=== PATIENT | female | born 1980 | race Caucasian/White ===

== ENCOUNTER → 2018-05-05 16:30 | Outpatient (CLI) | payer OTHER, SELFPAY | PROVIDERS: PCP Family Medicine; Visit Provider Family Medicine | DX: E03.9 Hypothyroidism, unspecified (principal) | CPT/HCPCS: 36415; 84439; 84443 ==

== ENCOUNTER → 2018-07-05 15:28 | Outpatient (CLI) | payer OTHER, SELFPAY ==
[2018-07-05 16:55] LABS: TSH w/ Reflex to FT4 4.41 uIU/mL (0.47-4.68)
== END ==
PROVIDERS: PCP Family Medicine; Visit Provider Family Medicine
DX: E03.9 Hypothyroidism, unspecified (principal)
CPT/HCPCS: 36415; 84443

== ENCOUNTER → 2019-06-07 16:31 | Outpatient (CLI) | payer OTHER, SELFPAY ==
[2019-06-07 18:40] LABS: Thyroid Stimulating Hormone 4.35 uIU/mL (0.47-4.68)
== END ==
PROVIDERS: PCP Family Medicine; Visit Provider Family Medicine
DX: E03.9 Hypothyroidism, unspecified (principal)
CPT/HCPCS: 36415; 84443

== ENCOUNTER → 2020-08-14 16:21 | Outpatient (CLI) | payer OTHER, SELFPAY ==
[2020-08-14 17:59] LABS: TSH w/ Reflex to FT4 3.19 uIU/mL (0.47-4.68)
== END ==
PROVIDERS: PCP Family Medicine; Referring Provider Family Medicine; Visit Provider Family Medicine
DX: E03.9 Hypothyroidism, unspecified (principal)
CPT/HCPCS: 36415; 84443

== ENCOUNTER → 2021-11-10 15:03 | Outpatient (CLI) | payer OTHER, SELFPAY ==
[2021-11-10 16:58] LABS: TSH w/ Reflex to FT4 0.57 uIU/mL (0.47-4.68)
== END ==
PROVIDERS: PCP Family Medicine; Referring Provider Family Medicine; Visit Provider Family Medicine
DX: E03.9 Hypothyroidism, unspecified (principal)
CPT/HCPCS: 36415; 84443

== ENCOUNTER → 2022-01-01 13:21 | Outpatient (CLI) | payer OTHER, SELFPAY ==
--- NOTE | 2022-01-01 | DI.MG.S_ITS ---
BILATERAL DIGITAL SCREENING MAMMOGRAM 3D/2D WITH CAD WITH AUGMENTATION: 01/01/2022 CLINICAL: Patient presents for routine screening. S/P bilateral augmentation. No prior exams were available for comparison. The tissue of both breasts is heterogeneously dense. This may lower the sensitivity of mammography. Current study was also evaluated with a Computer Aided Detection (CAD) system. Bilateral breast implants are present. There are benign calcifications in the left breast. No significant masses, calcifications, or other findings are seen in either breast. IMPRESSION: BENIGN There is no mammographic evidence of malignancy. A 1 year screening mammogram is recommended. This exam was interpreted at Station ID: [id number]. NOTE: For mammograms, a report in lay terms will be sent to the patient. Approximately 15% of breast malignancies will not be visualized mammographically. In the management of a palpable breast mass, a negative mammogram must not discourage biopsy of a clinically suspicious lesion. Electronically Signed By: Bryson preciado/sharmin:01/01/2022 16:16:09 letter sent: Normal Exam ACR BI-RADS Category 2: Benign Finding(s) 3342F
== END ==
PROVIDERS: PCP Family Medicine; Referring Provider Family Medicine; Visit Provider Family Medicine
DX: Z12.31 Encounter for screening mammogram for malignant neoplasm of breast (principal); Z98.82 Breast implant status
CPT/HCPCS: 77063; 77067

== ENCOUNTER → 2022-04-06 09:44 | Outpatient (CLI) | payer OTHER, SELFPAY ==
[2022-04-06 10:41] LABS: Hematocrit 37.7 % (36-46); Hemoglobin 12.8 g/dL (12.0-16.0); Mean Corpuscular HGB Conc 34.1 % (30-36); Mean Corpuscular Hemoglobin 30.1 PG (26-34); Mean Corpuscular Volume 88.2 fL (80-100); Platelet Count 277 X10^3/uL (150-400); Red Blood Cell Count 4.27 X10^6/uL (4.0-5.2); White Blood Cell Count 5.7 X10^3/uL (4.5-11.0)
[2022-04-06 10:42] LABS: Add Manual Diff / Slide Review YES
[2022-04-06 11:01] LABS: Neutrophils Absolute Manual 2166 /uL (3000-5900); Total Cells Counted 100
[2022-04-06 11:02] LABS: RBC Morphology Normal Morphology
[2022-04-06 11:12] LABS: Alanine Aminotransferase 8 IU/L (<35); Albumin 4.4 g/dL (3.5-5.0); Albumin Globulin Ratio 1.6 (1.0-2.8); Alkaline Phosphatase 43 U/L (38-126); Aspartate Aminotransferase 24 IU/L (14-36); BUN Creatinine Ratio 17.6 (6-22); Bilirubin Total 0.6 mg/dL (0.2-1.3); Blood Urea Nitrogen 16 mg/dL (7-17); Calcium 9.5 mg/dL (8.4-10.2); Carbon Dioxide 27 mmol/L (22-32); Chloride 101 mmol/L (98-107); Estimated Glomerular Filt Rate > 60 mL/min (>60); Globulin 2.8 g/dL (1.7-4.1); Glucose 90 mg/dL (70-100); HEMOLYSIS < 15 (0-50); Sodium 136 mmol/L (137-145); Total Protein 7.2 g/dL (6.3-8.2)
== END ==
PROVIDERS: PCP Family Medicine; Referring Provider Family Medicine; Visit Provider Family Medicine
DX: R10.9 Unspecified abdominal pain (principal)
CPT/HCPCS: 36415; 80053; 85007; 85025

== ENCOUNTER → 2022-04-08 08:44 | Outpatient (CLI) | payer OTHER, SELFPAY ==
--- NOTE | 2022-04-08 08:46 | DI.US.S_ITS ---
PROCEDURE: US ABDOMEN COMPLETE INDICATIONS: pain with fatty food TECHNIQUE: Real-time scanning was performed of the abdominal and retroperitoneal organs, with image documentation. COMPARISON: None. FINDINGS: Liver: Liver is normal in size and homogeneous in echotexture. Gallbladder: No findings of gallstones or sludge are seen. The gallbladder wall is not thickened, measuring 3 mm or less. No specific pericholecystic fluid is seen. The sonographic Evans sign is negative. Biliary ducts: Intrahepatic bile ducts are non-dilated. Extrahepatic bile duct caliber measures 4 mm. Normal is 6-7 mm or less in diameter, or 10 mm or less post-cholecystectomy. Pancreas: Visualized portions of the pancreas are sonographically normal. Spleen: Spleen is normal in size and homogeneous in echotexture. Kidneys: Kidneys are normal in size and echotexture. Right kidney measures 10.9 cm long; left kidney measures 10.9 cm long. No hydronephrosis or nephrolithiasis. No solid masses. Aorta: Visualized aorta is normal in caliber at less than 3 cm. Iliacs: Proximal common iliac arteries are normal in caliber at less than 2.5 cm. IVC: Intrahepatic inferior vena cava is patent. Miscellaneous: No free abdominal fluid. IMPRESSION: The gallbladder demonstrates a normal sonographic appearance. No biliary dilatation is seen. Dictated by: Thad Balbuena M.D. on 04/08/2022 at 10:12 Approved by: Thad Balbuena M.D. on 04/08/2022 at 10:13
== END ==
PROVIDERS: PCP Family Medicine; Referring Provider Family Medicine; Visit Provider Family Medicine
DX: R10.11 Right upper quadrant pain (principal)
CPT/HCPCS: 76700

== ENCOUNTER → 2023-03-15 09:53 | Outpatient (CLI) | payer OTHER, SELFPAY ==
[2023-03-15 12:18] LABS: Cholesterol 224 mg/dL (140-199); HDL Cholesterol 110 mg/dL (40-60); LDL Cholesterol Calculated 96 mg/dL (<100); Triglycerides 90 mg/dL (35-150)
[2023-03-15 12:43] LABS: TSH w/ Reflex to FT4 2.08 uIU/mL (0.47-4.68)
== END ==
PROVIDERS: PCP Family Medicine; Referring Provider Family Medicine; Visit Provider Family Medicine
DX: E03.9 Hypothyroidism, unspecified (principal); E78.5 Hyperlipidemia, unspecified
CPT/HCPCS: 36415; 80061; 84443

== ENCOUNTER 2023-12-08 07:28 | Day surgery (SDC) | payer OTHER, SELFPAY ==
--- NOTE | 2023-12-08 | PATH_ITS ---
[facility] Accession Number: [id number] No. of containers..01 Tissue . 01 Material submitted: . colon - SIGMOID POLYP . 01 Diagnosis: SIGMOID COLON, POLYP: Inflammatory polyp. Negative for dysplasia and malignancy. MRV 12/14/2023 1456 Local . 01 Electronically signed: . Jolanta Lowery MD, Pathologist NPI- [id number] . 01 Gross description: . SIGMOID POLYP: Received in formalin is 1 fragment(s) of land, soft tissue measuring 0.4 x 0.3 x 0.2 cm submitted entirely in 1 cassette(s) /ETHAN 12/09/2023 0123 Local . 01 Pathologist provided ICD-10: K63.5 . 01 CPT . 486053 Specimen Comment: A courtesy copy of this report has been sent to [phone] Performed at: 01 [facility] [address] [place] [address], [place], [place] [id number] MD Farooq Monroy MD Phone: [phone]
[2023-12-08 07:56] VITALS: BP 120/82; PULSE 72; RESP 17; TEMP 36.6; O2SAT 99
--- NOTE | 2023-12-08 08:27 | PM.HP.1 ---
History of Present Illness History of Present Illness Date Patient Seen: 12/08/23 Time Patient Seen: 08:27 Chief complaint: Colonoscopy Narrative: Marcelle is a 43-year-old woman who is here for a screening colonoscopy. It is her first colonoscopy. No family history of colon cancer. She denies melena or hematochezia. She does not have any GI or bowel symptoms. [facility] Medical History (Updated 12/08/23 @ 08:27 by Sid Sampson MD) Hyperlipidemia Family history of thoracic aortic aneurysm Hypothyroidism Surgical History H/O breast surgery (~2019) Anesthesia Osteochondral defect (~2015) History of breast augmentation (~2008) History of tonsillectomy (~1979) History of breast augmentation (~2007) Family History Father Age: 68 Osteoarthritis Gout Thoracic aortic aneurysm Grandfather Heart disease Stroke Cancer Grandmother Diabetes mellitus Mother Age: 65 COPD (chronic obstructive pulmonary disease) Grandmother Osteoarthritis Sister Age: 46 Hodgkin's lymphoma Social History marital status: number of children: 0 household members: spouse education level: college (grad school) 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)) Smoking Status: Never smoker alcohol intake: current substance use type: does not use Meds Home Medications and Allergies Home Medications Medication Instructions Recorded Confirmed Type etonogestrel 0.12 mg-ethinyl See Rx Instructions .Route 03/15/23 12/08/23 Rx estradiol 0.015 mg/24 hr vaginal .COMPLEX ##3 ring (SimuRyng) levothyroxine 88 mcg tablet 88 mcg PO DAILY #90 tabs 03/15/23 12/08/23 Rx loratadine 10 mg 12/08/23 History Allergies Allergy/AdvReac Type Severity Reaction Status Date / Time No Known Drug Allergies Allergy Verified 12/08/23 07:38 Exam Vital Signs (past 8 hours): - 12/08/23 07:56 Temperature 97.9 F Pulse Rate 72 Respiratory Rate 17 Blood Pressure 120/82 Pulse Oximetry 99 Oxygen Delivery Method Room Air Oxygen Delivery Method Room Air Const General: healthy appearing Resp Effort & Inspection: normal respiratory effort Assessment & Plan Assessment and plan (1) Colon cancer screening: Status: Acute Plan We reviewed the risks and benefits of colonoscopy for colon cancer screening and she would like to proceed.
--- NOTE | 2023-12-08 08:53 | PM.OP.COLON ---
Operative Date/Time/Diagnoses Date of procedure: 12/08/23 Time of procedure: 08:53 Pre-op diagnosis: Colon cancer screening Post-op diagnosis: same Procedure & Clinicians Study performed: Colonoscopy Same procedure as scheduled: Yes Surgeon: Sid Sampson Procedure Notes Procedure in detail: Surgeon: Sid Sampson MD Anesthesia: Alivia Yates D.O. Procedure: The patient was brought to the endoscopy suite, placed in left lateral decubitus position. The patient was connected to monitoring devices. A time-out was performed. Sedation was administered. Once the patient was adequately sedated, a digital rectal exam was performed and was normal. The scope was then inserted and advanced to the cecum where the appendiceal orifice was identified and photographed. The scope was then slowly withdrawn over greater than 6 minutes. The mucosa was thoroughly inspected. There was a 7 mm polyp in the sigmoid colon removed with a cold snare. There were rare scattered diverticula throughout the colon. The scope was retroflexed in the rectum. No other abnormalities were seen. The scope was straightened and removed. The patient was awakened and brought to recovery. Scope withdrawal time: 12 minutes Sedation time: 18 minutes EBL: 3 mL Findings: 7 mm polyp in the sigmoid colon and rare scattered sigmoid diverticula Post-procedure Disposition: PACU
[2023-12-08 08:56] VITALS: BP 99/68; PULSE 59; RESP 14; TEMP 36.1; O2SAT 99
[2023-12-08 09:01] VITALS: BP 104/70; PULSE 59; RESP 16; O2SAT 99
[2023-12-08 09:06] VITALS: BP 110/70; PULSE 53; RESP 11; TEMP 36.1; O2SAT 100
== END 2023-12-08 09:15 | disposition home or self-care (01) ==
PROVIDERS: PCP Family Medicine; Referring Provider Surgery; Visit Provider Surgery
PROC: 0DJD8ZZ Inspection of Lower Intestinal Tract, Via Natural or Artificial Opening Endoscopic (ICD-10-PCS; CPT 45378; principal; 2023-12-08 08:15)
DX: Z12.11 Encounter for screening for malignant neoplasm of colon (principal); K57.30 Diverticulosis of large intestine without perforation or abscess without bleeding
CPT/HCPCS: 45385; 81025; J2704

== ENCOUNTER → 2024-01-13 15:20 | Outpatient (CLI) | payer OTHER, SELFPAY ==
--- NOTE | 2024-01-13 15:21 | DI.MG.S_ITS ---
BILATERAL DIGITAL SCREENING MAMMOGRAM 3D/2D WITH CAD WITH AUGMENTATION: 01/13/2024 CLINICAL: Routine screening. Comparison is made to exam dated: 01/01/2022 mammogram - [facility]. Both breasts are extremely dense, which lowers the sensitivity of mammography (category d />75% glandular tissue). Current study was also evaluated with a Computer Aided Detection (CAD) system. Bilateral breast implants are present. There are benign calcifications in the left breast. There is an asymmetry in the left breast middle depth superior region seen on the mediolateral oblique view only. No other significant masses, calcifications, or other findings are seen in either breast. There has been no significant interval change. IMPRESSION: INCOMPLETE: NEEDS ADDITIONAL IMAGING EVALUATION The asymmetry in the left breast is indeterminate. Additional views with possible ultrasound are recommended. Based on Tyrer-Cuzick model (a risk assessment model), the patient's lifetime risk is 21.0% and her 10 year risk is 4.0%. If a patient has an elevated risk, a more comprehensive evaluation should be considered and/or a referral to a genetic counselor. The [place] [employer], [employer], and NCCN Guidelines advise the consideration of Breast MRI as an adjunct to screening mammography in patients whose Lifetime risk to develop breast cancer is 20% or higher. This exam was interpreted at Station ID: [id number]. NOTE: For mammograms, a report in lay terms will be sent to the patient. Approximately 15% of breast malignancies will not be visualized mammographically. In the management of a palpable breast mass, a negative mammogram must not discourage biopsy of a clinically suspicious lesion. Electronically Signed By: Isaiah hernandez/sharmin:01/13/2024 17:05:06 letter sent: Additional Imaging Needed ACR BI-RADS Category 0: Incomplete 3340F
== END ==
PROVIDERS: PCP Family Medicine; Referring Provider Family Medicine; Visit Provider Family Medicine
DX: Z12.31 Encounter for screening mammogram for malignant neoplasm of breast (principal); R92.343 Mammographic extreme density, bilateral breasts; Z98.82 Breast implant status
CPT/HCPCS: 77063; 77067

== ENCOUNTER → 2024-02-03 13:18 | Outpatient (CLI) | payer OTHER, SELFPAY ==
--- NOTE | 2024-02-03 13:19 | DI.MG.S_ITS ---
UNILATERAL LEFT DIGITAL DIAGNOSTIC MAMMOGRAM 3D/2D WITH ADDITIONAL VIEWS: 02/03/2024 CLINICAL: Additional evaluation requested from prior study. Comparison is made to exams dated: 01/13/2024 mammogram and 01/01/2022 mammogram - [facility]. The left breast is heterogeneously dense, which may obscure small masses (category c / 51-75% glandular tissue). The asymmetry seen on recent screening mammogram did not persist with additional imaging and likely represents superimposition of normal breast tissue. No significant masses, calcifications, or other findings are seen in the breast. IMPRESSION: INCOMPLETE: NEEDS ADDITIONAL IMAGING EVALUATION Probable superimposition of normal breast tissue. Recommend further evaluation with targeted breast ultrasound, which will immediately follow this exam. Based on the Tyrer Cuzick model (a risk assessment model) the patient's lifetime risk is 14.3% and her 10 year risk is 2.6%. According to the ACR, ACS, and NCCN guidelines, an annual breast MRI exam along with mammogram is recommended if the patient's lifetime risk is 20% or greater. This exam was interpreted at Station ID: [id number]. NOTE: For mammograms, a report in lay terms will be sent to the patient. Approximately 15% of breast malignancies will not be visualized mammographically. In the management of a palpable breast mass, a negative mammogram must not discourage biopsy of a clinically suspicious lesion. Electronically Signed By: Pati Valderrama M.D., Ph.D. eb/:02/03/2024 14:22:19 ACR BI-RADS Category 0: Incomplete 3340F
--- NOTE | 2024-02-03 13:19 | DI.US.S_ITS ---
LIMITED ULTRASOUND OF LEFT BREAST: 02/03/2024 CLINICAL: Patient returns today to evaluate an asymmetry in the left breast. Comparison is made to exams dated: 02/03/2024 mammogram, 01/13/2024 mammogram, and 01/01/2022 mammogram - [facility]. Real-time ultrasound of the left breast 1-3 o'clock region was performed. Rojas scale images of the real-time examination were reviewed. Confirmatory ultrasound demonstrates no sonographic abnormality in the left breast from to 1 to 3 o'clock, 3 cm from the nipple. Left breast implant is partially visualized. IMPRESSION: BENIGN Superimposition of normal breast tissue with confirmatory negative ultrasound. No sonographic or mammographic evidence of malignancy. A 1 year screening mammogram is recommended. Findings and recommendations were conveyed to the patient during today's evaluation. This exam was interpreted at Station ID: [id number]. Electronically Signed By: Pati Valderrama M.D., Ph.D. eb/:02/03/2024 14:25:40 letter sent: Normal Exam Ultrasound BI-RADS: 2 Benign
== END ==
PROVIDERS: PCP Family Medicine; Referring Provider Family Medicine; Visit Provider Family Medicine
DX: R92.8 Other abnormal and inconclusive findings on diagnostic imaging of breast (principal); R92.332 Mammographic heterogeneous density, left breast
CPT/HCPCS: 76642; 77065; G0279

== ENCOUNTER → 2024-04-13 15:56 | Outpatient (CLI) | payer OTHER, SELFPAY ==
[2024-04-13 16:53] LABS: Alanine Aminotransferase 12 IU/L (<35); Albumin 4.5 g/dL (3.5-5.0); Albumin Globulin Ratio 1.5 (1.0-2.8); Alkaline Phosphatase 63 U/L (38-126); Aspartate Aminotransferase 26 IU/L (14-36); BUN Creatinine Ratio 18.6 (6-22); Bilirubin Total 0.5 mg/dL (0.2-1.3); Blood Urea Nitrogen 18 mg/dL (7-17); Calcium 9.7 mg/dL (8.4-10.2); Carbon Dioxide 20 mmol/L (22-32); Chloride 107 mmol/L (98-107); Cholesterol 211 mg/dL (140-199); Estimated Glomerular Filt Rate > 60 mL/min (>60); Globulin 3.1 g/dL (1.7-4.1); Glucose 98 mg/dL (70-100); HEMOLYSIS < 15 (0-50); Potassium 4.5 mmol/L (3.4-5.1); Sodium 138 mmol/L (137-145); Total Protein 7.6 g/dL (6.3-8.2); Triglycerides 117 mg/dL (35-150)
[2024-04-13 17:00] LABS: HDL Cholesterol 107 mg/dL (40-60); LDL Cholesterol Calculated 81 mg/dL (<100)
[2024-04-13 17:24] LABS: TSH w/ Reflex to FT4 2.88 uIU/mL (0.47-4.68)
== END ==
LOC: LAB 15:57
PROVIDERS: PCP Family Medicine; Referring Provider Family Medicine; Visit Provider Family Medicine
DX: Z00.00 Encounter for general adult medical examination without abnormal findings (principal); E78.5 Hyperlipidemia, unspecified; E03.9 Hypothyroidism, unspecified
CPT/HCPCS: 36415; 80053; 80061; 84443

== ENCOUNTER → 2025-01-25 15:45 | Outpatient (CLI) | payer OTHER, SELFPAY ==
--- NOTE | 2025-01-25 15:46 | DI.MG.S_ITS ---
MM screening mammo implant BI: 01/25/2025. BI-RADS: 2 CLINICAL: 44-year old female for bilateral screening mammogram. Tyrer-Cuzick lifetime risk of 9.5%. No personal or first-degree family history of breast cancer. The patient has bilateral implants. PRIOR EXAMS 02/03/2024, 01/13/2024, 01/01/2022. MAMMOGRAPHY TECHNIQUE: 2D and 3D (tomosynthesis) digital mammographic views obtained, with additional images as needed for full coverage. Current study was also evaluated with a Computer Aided Detection (CAD) system. DENSITY C. The breasts are heterogeneously dense, which may obscure small masses. IMPLANTS Breast implants present. MAMMOGRAPHY FINDINGS Bilateral: There are no suspicious masses, calcifications, or other findings in the breast. IMPRESSION: * No evidence of malignancy with benign findings. RECOMMENDATIONS Bilateral * Annual screening mammography. OVERALL ASSESSMENT CATEGORY BI-RADS-2: Benign. The [employer] recommends annual screening mammography beginning at age 40 for women with average risk of breast cancer. ELECTRONICALLY SIGNED: Pati Valderrama M.D. on 01/28/2025 at 08:00:12 AM PT Interpreting Station ID: [id number]
== END ==
PROVIDERS: PCP Family Medicine; Referring Provider Family Medicine; Visit Provider Family Medicine
DX: Z12.31 Encounter for screening mammogram for malignant neoplasm of breast (principal); Z98.82 Breast implant status; R92.333 Mammographic heterogeneous density, bilateral breasts
CPT/HCPCS: 77063; 77067

== ENCOUNTER → 2025-03-29 14:20 | Outpatient (CLI) | payer OTHER, SELFPAY ==
[2025-03-29 15:39] LABS: TSH w/ Reflex to FT4 0.75 uIU/mL (0.47-4.68)
== END ==
PROVIDERS: PCP Family Medicine; Referring Provider Family Medicine; Visit Provider Family Medicine
DX: Z00.00 Encounter for general adult medical examination without abnormal findings (principal); E03.9 Hypothyroidism, unspecified
CPT/HCPCS: 36415; 84443